=== PATIENT | female | born 1960 | race Caucasian/White ===

== ENCOUNTER 2017-01-26 16:30 | Emergency (ER) | payer BC ==
[2017-01-26] MEDS ORDERED: Take Home: Doxycycline 100 MG Tab, 4 Tab Pack PO ONE (16:48)
--- NOTE | 2017-01-26 16:52 | EDM.PDOC ---
ED HPI GENERAL MEDICAL PROBLEM - General Stated Complaint: MAY HAVE BRONCHITIS Time Seen by Provider: 01/26/17 16:47 Source of Information: Reports: Patient History Limitations: Reports: No Limitations - History of Present Illness INITIAL COMMENTS - FREE TEXT/NARRATIVE: Patient has had a cold for two weeks, now its getting worse and settling in her chest. Also complaining of sinus type frontal headache and frequent cough with clear phlegm. Denies fever but has been feeling chilled. Onset: Gradual Onset Date: 01/12/17 Onset Time: 08:00 Duration: Day(s):, Getting Worse Location: Reports: Head, Chest Quality: Reports: Pressure, Throbbing Severity: Moderate Improves with: Reports: None Worsens with: Reports: None Associated Symptoms: Reports: Cough, cough w sputum, Fever/Chills, Headaches. 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, Other (see below) (mucinex and cough syrup) Headache Pain Score (Numeric/FACES): 3 - Related Data Allergies Allergy/AdvReac Type Severity Reaction Status Date / Time No Known Allergies Allergy Verified 03/08/14 11:15 Home Meds: Home Meds Desonide [Desonide 0.05%] 1 applic TOP ASDIRECTED 03/08/14 [History] Meloxicam [Mobic] 1 tab PO DAILY 03/08/14 [History] Triamcinolone Acetonide [Kenalog 0.1% Crm] 1 applic TOP BID PRN 03/08/14 [ History] Social & Family History - Tobacco Use Smoking Status *Q: Current Every Day Smoker - Alcohol Use Days Per Week of Alcohol Use: 0 - Recreational Drug Use Recreational Drug Use: No ED ROS GENERAL - Review of Systems Review Of Systems: See Below Constitutional: Reports: Chills. Denies: Fever, Weakness, Fatigue, Night Sweats HEENT: Reports: Sinus Problem, Throat Pain. Denies: Ear Pain, Throat Swelling, Vertigo Respiratory: Reports: Cough, Sputum. Denies: Shortness of Breath, Wheezing Cardiovascular: Denies: Chest Pain, Dyspnea on Exertion, Lightheadedness, Orthopnea Endocrine: Denies: Fatigue GI/Abdominal: Reports: No Symptoms : Reports: No Symptoms Musculoskeletal: Reports: No Symptoms Skin: Reports: No Symptoms Neurological: Reports: No Symptoms Psychiatric: Reports: No Symptoms Hematologic/Lymphatic: Reports: No Symptoms Immunologic: Reports: No Symptoms ED EXAM, GENERAL - Physical Exam Exam: See Below Exam Limited By: No Limitations General Appearance: Alert, WD/WN, No Apparent Distress Eye Exam: Bilateral Eye: EOMI, PERRL Ears: Normal External Exam, Normal Canal, Hearing Grossly Normal, Normal TMs Nose: Nasal Swelling, Clear Rhinorrhea, Other (reddenned swollen nasal mucosa) Throat/Mouth: Normal Lips, Normal Teeth, Normal Gums, No Airway Compromise, Other (oropharnyx red with clear, thin PND, voice hoarse, oral mucous membranes moist) Head: Atraumatic, Normocephalic Neck: Normal Inspection, Supple, Non-Tender, Full Range of Motion. No: Thyromegaly Respiratory/Chest: No Respiratory Distress, Lungs Clear, Normal Breath Sounds, Other (harsh breeath sounds over the bronchi, taking a deep breath causes harsh , hacky coughing). No: Respiratory Distress, Crackles, Rales, Rhonchi, Wheezing Cardiovascular: Normal Peripheral Pulses, Regular Rate, Rhythm, No Edema, No Gallop, No JVD, No Murmur, No Rub Peripheral Pulses: 3+: Radial (L), Radial (R) GI/Abdominal: Normal Bowel Sounds, Soft, Non-Tender (Female) Exam: Deferred Rectal (Female) Exam: Deferred Back Exam: Normal Inspection Extremities: Normal Inspection, No Pedal Edema Neurological: Alert, Oriented, CN II-XII Intact, Normal Cognition, Normal Gait Psychiatric: Normal Affect, Normal Mood Skin Exam: Warm, Dry, Intact, Normal Color, No Rash Lymphatic: No Adenopathy Course - Vital Signs Text/Narrative:: Patient examined and evaluated. Diagnosed with acute bronchitis and sinusitis lasting two weeks or longer. Due to being a smoker, she will be started on doxycycline for ten days. Given starter pack with rx to fill on Saturday Also given RX for inhaler to fill if cough not better by Saturday. Patient voiced understanding and agreed with plan. Last Recorded V/S: Last Vital Signs Temp 36.1 C 01/26/17 16:35 Pulse 89 01/26/17 16:35 Resp 20 01/26/17 16:35 BP 114/60 01/26/17 16:35 Pulse Ox 96 01/26/17 16:35 - Orders/Labs/Meds Meds: Medications Discontinued Medications Generic Name Dose Route Start Last Admin Trade Name Pushpa PRN Reason Stop Dose Admin Doxycycline Monohydrate 1 packet 01/26/17 16:48 01/26/17 17:03 Take Home: Doxycycline 100 Mg, 4 Tab Pack PO 01/26/17 16:49 1 packet ONETIME ONE Administration Departure - Departure Time of Disposition: 17:00 Disposition: Home, Self-Care 01 Condition: Good Clinical Impression: Bronchitis Sinusitis Qualifiers: Sinusitis location: frontal Chronicity: acute Recurrence: not specified as recurrent Qualified Code(s): J01.10 - Acute frontal sinusitis, unspecified - Discharge Information Instructions: Acute Bronchitis, [id number] Referrals: Jolie Felipe PA-C [Primary Care Provider] - Additional Instructions: Take antibiotic as directed. Doxycycline 100 mg twice daily for ten days. Fill Prescription for inhaler if cough not better by Saturday. Recheck with your provider if symptoms don't improve within 3-5 days. Eat yogurt once daily to help prevent antibiotic related diarrhea.
[2017-01-26 16:55] VITALS: BP 114/60
== END 2017-01-26 17:04 | disposition home or self-care (01) ==
LOC: VM.ED 16:30
DX: J40 Bronchitis, not specified as acute or chronic (principal); J01.10 Acute frontal sinusitis, unspecified; F17.210 Nicotine dependence, cigarettes, uncomplicated; Z79.899 Other long term (current) drug therapy
CPT/HCPCS: 99283; A9270

== ENCOUNTER 2017-02-06 12:25 | Emergency (ER) | payer BC ==
[2017-02-06] MEDS ORDERED: Sodium Chloride 0.9% 10 ML Syringe FLUSH PRN (12:46)
[2017-02-06] MEDS ORDERED: Sodium Chloride 0.9% 1,000 ML IV SCH (13:00)
--- NOTE | 2017-02-06 13:29 | EDM.PDOC ---
ED HPI GENERAL MEDICAL PROBLEM - General Chief Complaint: Syncope Stated Complaint: LIGHT HEADED Time Seen by Provider: 02/06/17 12:43 Source of Information: Reports: Patient History Limitations: Reports: No Limitations - History of Present Illness INITIAL COMMENTS - FREE TEXT/NARRATIVE: Patient with minimal reported health history presents with light headedness, feeling like she is going to black out and sweating. She just suffered this attack. Was seen at the clinic on Saturday for "not feeling well." Pretty general symptoms with that visit. She has started having migraine headaches starting about 1 month ago. They did start off just at night, but have progressed to happening during the day as well. She was started on Topamax on Saturday at the clinic. She sees Jolie at the [facility] in [place]. She is a 1 ppd smoker, no etoh, no drugs. No htn, no concer, no copd, no thyroid issues. She does have arthritis which is about the only medical problem she does admit to. Onset: Today, Sudden Onset Date: 02/06/17 Onset Time: 12:00 Location: Reports: Chest, Abdomen Quality: Reports: Other (cramping) Severity: Moderate Improves with: Reports: None Worsens with: Reports: None Associated Symptoms: Reports: Headaches, Syncope - Related Data Allergies Allergy/AdvReac Type Severity Reaction Status Date / Time No Known Allergies Allergy Verified 02/06/17 12:44 Home Meds: Home Meds Desonide [Desonide 0.05%] 1 applic TOP ASDIRECTED 03/08/14 [History] Meloxicam [Mobic] 1 tab PO DAILY 03/08/14 [History] Triamcinolone Acetonide [Kenalog 0.1% Crm] 1 applic TOP BID PRN 03/08/14 [ History] Doxycycline [Vibramycin] 100 mg PO BID 02/06/17 [History] Topiramate [Topiramate ER] 25 mg DAILY 02/06/17 [History] Past Medical History - Past Health History Medical/Surgical History: Denies Medical/Surgical History Musculoskeletal History: Reports: Arthritis Neurological History: Reports: Migraines Dermatologic History: Reports: Eczema - Past Surgical History Female Surgical History: Reports: Tubal Ligation Social & Family History - Tobacco Use Smoking Status *Q: Current Every Day Smoker Years of Tobacco use: 40 Packs/Tins Daily: 1 - Alcohol Use Days Per Week of Alcohol Use: 0 - Recreational Drug Use Recreational Drug Use: No ED ROS GENERAL - Review of Systems Review Of Systems: See Below Constitutional: Reports: No Symptoms HEENT: Reports: No Symptoms Respiratory: Reports: No Symptoms Cardiovascular: Reports: No Symptoms, Chest Pain Endocrine: Reports: No Symptoms GI/Abdominal: Reports: Abdominal Pain, Nausea : Reports: No Symptoms Musculoskeletal: Reports: No Symptoms Skin: Reports: No Symptoms Neurological: Reports: Dizziness, Headache, Syncope Psychiatric: Reports: No Symptoms Hematologic/Lymphatic: Reports: No Symptoms Immunologic: Reports: No Symptoms - Physical Exam Exam: See Below Exam Limited By: No Limitations General Appearance: Alert, WD/WN, Mild Distress Eye Exam: Bilateral Eye: EOMI, PERRL Throat/Mouth: Normal Inspection Head Exam: Atraumatic, Normocephalic Neck: Normal Inspection, Supple, Non-Tender, Full Range of Motion Respiratory/Chest: No Respiratory Distress, Lungs Clear, Normal Breath Sounds, No Accessory Muscle Use, Chest Non-Tender Cardiovascular: Normal Peripheral Pulses, Regular Rate, Rhythm, No Edema, No Gallop GI/Abdominal: Normal Bowel Sounds, Soft, No Distention, No Abnormal Bruit, Tender Neuro Exam (Abbreviated): Alert, Oriented, CN II-XII Intact, Normal Cognition, Normal Gait, Normal Reflexes, No Motor/Sensory Deficits Back Exam: Normal Inspection, Full Range of Motion Extremities: Normal Inspection, Normal Range of Motion, Non-Tender, No Pedal Edema, Normal Capillary Refill Psychiatric: Normal Affect, Anxious Skin Exam: Warm, Dry, Intact Course - Vital Signs Last Recorded V/S: Last Vital Signs Temp 35.5 C 02/06/17 12:25 Pulse 79 02/06/17 12:25 Resp 16 02/06/17 12:25 BP 174/70 H 02/06/17 12:25 Pulse Ox - Orders/Labs/Meds Orders: Active Orders 24 hr Category Date Time Status EKG Documentation Completion [RC] ROUTINE Care 02/06/17 12:43 Ordered Abdomen Pelvis w Cont [CT] Stat Exams 02/06/17 13:21 Ordered Ang Chest [CT] Stat Exams 02/06/17 13:21 Ordered Chest 2V [CR] Stat Exams 02/06/17 12:43 Stop Req B-TYPE NATRIURETIC PEPTIDE,BNP [CHEM] Stat Lab 02/06/17 12:43 Ordered CK W CKMB [CHEM] Stat Lab 02/06/17 12:43 Ordered COMPREHENSIVE METABOLIC PN,CMP [CHEM] Stat Lab 02/06/17 12:43 Ordered CRP [C-REACTIVE PROTEIN] [CHEM] Stat Lab 02/06/17 12:46 Ordered D Dimer [D-DIMER QUANTITATIVE] [COAG] Stat Lab 02/06/17 13:20 Ordered TROPONIN I [CHEM] Stat Lab 02/06/17 12:43 Ordered Sodium Chloride 0.9% [Normal Saline] 1,000 ml Med 02/06/17 13:00 Ordered IV ASDIRECTED Sodium Chloride 0.9% [Saline Flush] Med 02/06/17 12:46 Ordered 10 ml FLUSH ASDIRECTED PRN Saline Lock Insert [OM.PC] Routine Oth 02/06/17 12:46 Ordered Medication Orders Sodium Chloride (Normal Saline) 1,000 mls @ 999 mls/hr IV ASDIRECTED KEN Last Admin: 02/06/17 13:15 Dose: 999 mls/hr Sodium Chloride (Saline Flush) 10 ml FLUSH ASDIRECTED PRN PRN Reason: Keep Vein Open Labs: Laboratory Tests 02/06/17 02/06/17 Range/Units 12:52 12:52 WBC 5.7 (4.0-10.0) x10^3/uL RBC 4.53 (4.00-5.50) x10^6/uL Hgb 14.4 (12.0-16.0) g/dL Hct 42.5 (33.0-47.0) % MCV 93.8 H (78.0-93.0) fL MCH 31.8 (26.0-32.0) pg MCHC 33.9 (32.0-36.0) g/dL RDW Coeff of Meera 12.5 (10.0-15.0) % Plt Count 252 (130-400) x10^3/uL Neut % (Auto) 52.2 (50.0-80.0) % Lymph % (Auto) 39.5 (25.0-50.0) % Grainger % (Auto) 7.1 (2.0-11.0) % Eos % (Auto) 1.2 (0.0-4.0) % Baso % (Auto) 0.0 L (0.2-1.2) % PT 10.4 (10.0-12.8) SEC INR 0.9 L (2.0-3.5) Meds: Medications Generic Name Dose Route Start Last Admin Trade Name Pushpa PRN Reason Stop Dose Admin Sodium Chloride 1,000 mls @ 999 mls/hr 02/06/17 13:00 02/06/17 13:15 Normal Saline IV 999 mls/hr ASDIRECTED KEN Administration Sodium Chloride 10 ml 02/06/17 12:46 Saline Flush FLUSH ASDIRECTED PRN Keep Vein Open - Re-Assessments/Exams Free Text/Narrative Re-Assessment/Exam: 02/06/17 15:11 Patient's daughter did reveal that her West Nile Test performed on Saturday did just come back positive. Review of x-ray reveals 27 mm right upper lobe nodule, grossly normal abdominal CT. No AAA. D-dimer, troponin negative Departure - Departure Time of Disposition: 14:45 Disposition: Home, Self-Care 01 Condition: Good Clinical Impression: [place] fever with other complications - Discharge Information Instructions: West Nile Virus Forms: ED Department Discharge Additional Instructions: ED HPI GENERAL MEDICAL PROBLEM - General Chief Complaint: Syncope Stated Complaint: LIGHT HEADED Time Seen by Provider: 02/06/17 12:43 Source of Information: Reports: Patient History Limitations: Reports: No Limitations - History of Present Illness Onset: Today, Sudden Onset Date: 02/06/17 Onset Time: 12:00 Location: Reports: Chest, Abdomen Quality: Reports: Other (cramping) - Related Data Allergies Allergy/AdvReac Type Severity Reaction Status Date / Time No Known Allergies Allergy Verified 02/06/17 12:44 Home Meds: Home Meds Desonide [Desonide 0.05%] 1 applic TOP ASDIRECTED 03/08/14 [History] Meloxicam [Mobic] 1 tab PO DAILY 03/08/14 [History] Triamcinolone Acetonide [Kenalog 0.1% Crm] 1 applic TOP BID PRN 03/08/14 [ History] Doxycycline [Vibramycin] 100 mg PO BID 02/06/17 [History] Topiramate [Topiramate ER] 25 mg DAILY 02/06/17 [History] Past Medical History - Past Health History Medical/Surgical History: Denies Medical/Surgical History Musculoskeletal History: Reports: Arthritis Neurological History: Reports: Migraines Dermatologic History: Reports: Eczema - Past Surgical History Female Surgical History: Reports: Tubal Ligation Social & Family History - Tobacco Use Smoking Status *Q: Current Every Day Smoker Years of Tobacco use: 40 Packs/Tins Daily: 1 - Alcohol Use Days Per Week of Alcohol Use: 0 - Recreational Drug Use Recreational Drug Use: No Course - Vital Signs Last Recorded V/S: Last Vital Signs Temp 35.5 C 02/06/17 12:25 Pulse 79 02/06/17 12:25 Resp 16 02/06/17 12:25 BP 174/70 H 02/06/17 12:25 Pulse Ox - Orders/Labs/Meds Orders: Active Orders 24 hr Category Date Time Status EKG Documentation Completion [RC] ROUTINE Care 02/06/17 12:43 Ordered Abdomen Pelvis w Cont [CT] Stat Exams 02/06/17 13:21 Ordered Ang Chest [CT] Stat Exams 02/06/17 13:21 Ordered Chest 2V [CR] Stat Exams 02/06/17 12:43 Stop Req B-TYPE NATRIURETIC PEPTIDE,BNP [CHEM] Stat Lab 02/06/17 12:43 Ordered CK W CKMB [CHEM] Stat Lab 02/06/17 12:43 Ordered COMPREHENSIVE METABOLIC PN,CMP [CHEM] Stat Lab 02/06/17 12:43 Ordered CRP [C-REACTIVE PROTEIN] [CHEM] Stat Lab 02/06/17 12:46 Ordered D Dimer [D-DIMER QUANTITATIVE] [COAG] Stat Lab 02/06/17 13:20 Ordered TROPONIN I [CHEM] Stat Lab 02/06/17 12:43 Ordered Sodium Chloride 0.9% [Normal Saline] 1,000 ml Med 02/06/17 13:00 Ordered IV ASDIRECTED Sodium Chloride 0.9% [Saline Flush] Med 02/06/17 12:46 Ordered 10 ml FLUSH ASDIRECTED PRN Saline Lock Insert [OM.PC] Routine Oth 02/06/17 12:46 Ordered Medication Orders Sodium Chloride (Normal Saline) 1,000 mls @ 999 mls/hr IV ASDIRECTED KEN Last Admin: 02/06/17 13:15 Dose: 999 mls/hr Sodium Chloride (Saline Flush) 10 ml FLUSH ASDIRECTED PRN PRN Reason: Keep Vein Open Labs: Laboratory Tests 02/06/17 02/06/17 Range/Units 12:52 12:52 WBC 5.7 (4.0-10.0) x10^3/uL RBC 4.53 (4.00-5.50) x10^6/uL Hgb 14.4 (12.0-16.0) g/dL Hct 42.5 (33.0-47.0) % MCV 93.8 H (78.0-93.0) fL MCH 31.8 (26.0-32.0) pg MCHC 33.9 (32.0-36.0) g/dL RDW Coeff of Meera 12.5 (10.0-15.0) % Plt Count 252 (130-400) x10^3/uL Neut % (Auto) 52.2 (50.0-80.0) % Lymph % (Auto) 39.5 (25.0-50.0) % Grainger % (Auto) 7.1 (2.0-11.0) % Eos % (Auto) 1.2 (0.0-4.0) % Baso % (Auto) 0.0 L (0.2-1.2) % PT 10.4 (10.0-12.8) SEC INR 0.9 L (2.0-3.5) Meds: Medications Generic Name Dose Route Start Last Admin Trade Name Freq PRN Reason Stop Dose Admin Sodium Chloride 1,000 mls @ 999 mls/hr 02/06/17 13:00 02/06/17 13:15 Normal Saline IV 999 mls/hr ASDIRECTED KEN Administration Sodium Chloride 10 ml 02/06/17 12:46 Saline Flush FLUSH ASDIRECTED PRN Keep Vein Open Departure - Departure Disposition: Home, Self-Care 01 Condition: Good Clinical Impression: [place] fever with other complications - Discharge Information Instructions: West [place] Virus Forms: ED Department Discharge Additional Instructions: ED HPI GENERAL MEDICAL PROBLEM - General Chief Complaint: Syncope Stated Complaint: LIGHT HEADED Time Seen by Provider: 02/06/17 12:43 Source of Information: Reports: Patient History Limitations: Reports: No Limitations - History of Present Illness Onset: Today, Sudden Onset Date: 02/06/17 Onset Time: 12:00 Location: Reports: Chest, Abdomen Quality: Reports: Other (cramping) - Related Data Allergies Allergy/AdvReac Type Severity Reaction Status Date / Time No Known Allergies Allergy Verified 02/06/17 12:44 Home Meds: Home Meds Desonide [Desonide 0.05%] 1 applic TOP ASDIRECTED 03/08/14 [History] Meloxicam [Mobic] 1 tab PO DAILY 03/08/14 [History] Triamcinolone Acetonide [Kenalog 0.1% Crm] 1 applic TOP BID PRN 03/08/14 [ History] Doxycycline [Vibramycin] 100 mg PO BID 02/06/17 [History] Topiramate [Topiramate ER] 25 mg DAILY 02/06/17 [History] Past Medical History - Past Health History Medical/Surgical History: Denies Medical/Surgical History Musculoskeletal History: Reports: Arthritis Neurological History: Reports: Migraines Dermatologic History: Reports: Eczema - Past Surgical History Female Surgical History: Reports: Tubal Ligation Social & Family History - Tobacco Use Smoking Status *Q: Current Every Day Smoker Years of Tobacco use: 40 Packs/Tins Daily: 1 - Alcohol Use Days Per Week of Alcohol Use: 0 - Recreational Drug Use Recreational Drug Use: No Course - Vital Signs Last Recorded V/S: Last Vital Signs Temp 35.5 C 02/06/17 12:25 Pulse 79 02/06/17 12:25 Resp 16 02/06/17 12:25 BP 174/70 H 02/06/17 12:25 Pulse Ox - Orders/Labs/Meds Orders: Active Orders 24 hr Category Date Time Status EKG Documentation Completion [RC] ROUTINE Care 02/06/17 12:43 Ordered Abdomen Pelvis w Cont [CT] Stat Exams 02/06/17 13:21 Ordered Ang Chest [CT] Stat Exams 02/06/17 13:21 Ordered Chest 2V [CR] Stat Exams 02/06/17 12:43 Stop Req B-TYPE NATRIURETIC PEPTIDE,BNP [CHEM] Stat Lab 02/06/17 12:43 Ordered CK W CKMB [CHEM] Stat Lab 02/06/17 12:43 Ordered COMPREHENSIVE METABOLIC PN,CMP [CHEM] Stat Lab 02/06/17 12:43 Ordered CRP [C-REACTIVE PROTEIN] [CHEM] Stat Lab 02/06/17 12:46 Ordered D Dimer [D-DIMER QUANTITATIVE] [COAG] Stat Lab 02/06/17 13:20 Ordered TROPONIN I [CHEM] Stat Lab 02/06/17 12:43 Ordered Sodium Chloride 0.9% [Normal Saline] 1,000 ml Med 02/06/17 13:00 Ordered IV ASDIRECTED Sodium Chloride 0.9% [Saline Flush] Med 02/06/17 12:46 Ordered 10 ml FLUSH ASDIRECTED PRN Saline Lock Insert [OM.PC] Routine Oth 02/06/17 12:46 Ordered Medication Orders Sodium Chloride (Normal Saline) 1,000 mls @ 999 mls/hr IV ASDIRECTED KEN Last Admin: 02/06/17 13:15 Dose: 999 mls/hr Sodium Chloride (Saline Flush) 10 ml FLUSH ASDIRECTED PRN PRN Reason: Keep Vein Open Labs: Laboratory Tests 02/06/17 02/06/17 Range/Units 12:52 12:52 WBC 5.7 (4.0-10.0) x10^3/uL RBC 4.53 (4.00-5.50) x10^6/uL Hgb 14.4 (12.0-16.0) g/dL Hct 42.5 (33.0-47.0) % MCV 93.8 H (78.0-93.0) fL MCH 31.8 (26.0-32.0) pg MCHC 33.9 (32.0-36.0) g/dL RDW Coeff of Meera 12.5 (10.0-15.0) % Plt Count 252 (130-400) x10^3/uL Neut % (Auto) 52.2 (50.0-80.0) % Lymph % (Auto) 39.5 (25.0-50.0) % Grainger % (Auto) 7.1 (2.0-11.0) % Eos % (Auto) 1.2 (0.0-4.0) % Baso % (Auto) 0.0 L (0.2-1.2) % PT 10.4 (10.0-12.8) SEC INR 0.9 L (2.0-3.5) Meds: Medications Generic Name Dose Route Start Last Admin Trade Name Freq PRN Reason Stop Dose Admin Sodium Chloride 1,000 mls @ 999 mls/hr 02/06/17 13:00 02/06/17 13:15 Normal Saline IV 999 mls/hr ASDIRECTED KEN Administration Sodium Chloride 10 ml 02/06/17 12:46 Saline Flush FLUSH ASDIRECTED PRN Keep Vein Open Departure - Departure Disposition: Home, Self-Care 01 Condition: Good Clinical Impression: [place] fever with other complications - Discharge Information Instructions: West Nile Virus Forms: ED Department Discharge - My Orders Last 24 Hours: I have reviewed your case with Dr. Garcia at [facility] and we feel it is alright for you to go home today. You need to schedule a follow up appointment with Jolie next week. You should come back in with any signs of worsening neurologic symptoms. These can include worsening or more frequent headaches, neck ache, numbness or weakness to one side of the body or any speech difficulty. Please review the packet I included regarding West Nile. There can be some residual symptoms. Please call us with any questions or concerns. - Problem List & Annotations (1) West [place] fever with other complications SNOMED Code(s): 532230551 Code(s): A92.39 - [place] N[place] VIRUS INFECTION WITH OTHER COMPLICATIONS Status : Acute Priority: Medium Current Visit: Yes - Problem List Review Problem List Initiated/Reviewed/Updated: Yes - My Orders Last 24 Hours: My Active Orders 02/06/17 12:43 EKG Documentation Completion [RC] ROUTINE Chest 2V [CR] Stat B-TYPE NATRIURETIC PEPTIDE,BNP [CHEM] Stat CK W CKMB [CHEM] Stat COMPREHENSIVE METABOLIC PN,CMP [CHEM] Stat TROPONIN I [CHEM] Stat 02/06/17 12:46 CRP [C-REACTIVE PROTEIN] [CHEM] Stat Sodium Chloride 0.9% [Saline Flush] 10 ml FLUSH ASDIRECTED PRN Saline Lock Insert [OM.PC] Routine 02/06/17 13:00 Sodium Chloride 0.9% [Normal Saline] 1,000 ml IV ASDIRECTED 02/06/17 13:20 D Dimer [D-DIMER QUANTITATIVE] [COAG] Stat 02/06/17 13:21 Abdomen Pelvis w Cont [CT] Stat Ang Chest [CT] Stat - Assessment/Plan Last 24 Hours: My Active Orders 02/06/17 12:43 EKG Documentation Completion [RC] ROUTINE Chest 2V [CR] Stat B-TYPE NATRIURETIC PEPTIDE,BNP [CHEM] Stat CK W CKMB [CHEM] Stat COMPREHENSIVE METABOLIC PN,CMP [CHEM] Stat TROPONIN I [CHEM] Stat 02/06/17 12:46 CRP [C-REACTIVE PROTEIN] [CHEM] Stat Sodium Chloride 0.9% [Saline Flush] 10 ml FLUSH ASDIRECTED PRN Saline Lock Insert [OM.PC] Routine 02/06/17 13:00 Sodium Chloride 0.9% [Normal Saline] 1,000 ml IV ASDIRECTED 02/06/17 13:20 D Dimer [D-DIMER QUANTITATIVE] [COAG] Stat 02/06/17 13:21 Abdomen Pelvis w Cont [CT] Stat Ang Chest [CT] Stat Assessment:: West Nile Virus Plan: I have reviewed your case with Dr. Garcia at [facility] and we feel it is alright for you to go home today. You need to schedule a follow up appointment with Jolie next week. You should come back in with any signs of worsening neurologic symptoms. These can include worsening or more frequent headaches, neck ache, numbness or weakness to one side of the body or any speech difficulty. Please review the packet I included regarding [place]. There can be some residual symptoms. Please call us with any questions or concerns. ED HPI GENERAL MEDICAL PROBLEM - General Chief Complaint: Syncope Stated Complaint: LIGHT HEADED Time Seen by Provider: 02/06/17 12:43 Source of Information: Reports: Patient History Limitations: Reports: No Limitations - History of Present Illness Onset: Today, Sudden Onset Date: 02/06/17 Onset Time: 12:00 Location: Reports: Chest, Abdomen Quality: Reports: Other (cramping) - Related Data Allergies Allergy/AdvReac Type Severity Reaction Status Date / Time No Known Allergies Allergy Verified 02/06/17 12:44 Home Meds: Home Meds Desonide [Desonide 0.05%] 1 applic TOP ASDIRECTED 03/08/14 [History] Meloxicam [Mobic] 1 tab PO DAILY 03/08/14 [History] Triamcinolone Acetonide [Kenalog 0.1% Crm] 1 applic TOP BID PRN 03/08/14 [ History] Doxycycline [Vibramycin] 100 mg PO BID 02/06/17 [History] Topiramate [Topiramate ER] 25 mg DAILY 02/06/17 [History] Past Medical History - Past Health History Medical/Surgical History: Denies Medical/Surgical History Musculoskeletal History: Reports: Arthritis Neurological History: Reports: Migraines Dermatologic History: Reports: Eczema - Past Surgical History Female Surgical History: Reports: Tubal Ligation Social & Family History - Tobacco Use Smoking Status *Q: Current Every Day Smoker Years of Tobacco use: 40 Packs/Tins Daily: 1 - Alcohol Use Days Per Week of Alcohol Use: 0 - Recreational Drug Use Recreational Drug Use: No Course - Vital Signs Last Recorded V/S: Last Vital Signs Temp 35.5 C 02/06/17 12:25 Pulse 79 02/06/17 12:25 Resp 16 02/06/17 12:25 BP 174/70 H 02/06/17 12:25 Pulse Ox - Orders/Labs/Meds Orders: Active Orders 24 hr Category Date Time Status EKG Documentation Completion [RC] ROUTINE Care 02/06/17 12:43 Ordered Abdomen Pelvis w Cont [CT] Stat Exams 02/06/17 13:21 Ordered Ang Chest [CT] Stat Exams 02/06/17 13:21 Ordered Chest 2V [CR] Stat Exams 02/06/17 12:43 Stop Req B-TYPE NATRIURETIC PEPTIDE,BNP [CHEM] Stat Lab 02/06/17 12:43 Ordered CK W CKMB [CHEM] Stat Lab 02/06/17 12:43 Ordered COMPREHENSIVE METABOLIC PN,CMP [CHEM] Stat Lab 02/06/17 12:43 Ordered CRP [C-REACTIVE PROTEIN] [CHEM] Stat Lab 02/06/17 12:46 Ordered D Dimer [D-DIMER QUANTITATIVE] [COAG] Stat Lab 02/06/17 13:20 Ordered TROPONIN I [CHEM] Stat Lab 02/06/17 12:43 Ordered Sodium Chloride 0.9% [Normal Saline] 1,000 ml Med 02/06/17 13:00 Ordered IV ASDIRECTED Sodium Chloride 0.9% [Saline Flush] Med 02/06/17 12:46 Ordered 10 ml FLUSH ASDIRECTED PRN Saline Lock Insert [OM.PC] Routine Oth 02/06/17 12:46 Ordered Medication Orders Sodium Chloride (Normal Saline) 1,000 mls @ 999 mls/hr IV ASDIRECTED KEN Last Admin: 02/06/17 13:15 Dose: 999 mls/hr Sodium Chloride (Saline Flush) 10 ml FLUSH ASDIRECTED PRN PRN Reason: Keep Vein Open Labs: Laboratory Tests 02/06/17 02/06/17 Range/Units 12:52 12:52 WBC 5.7 (4.0-10.0) x10^3/uL RBC 4.53 (4.00-5.50) x10^6/uL Hgb 14.4 (12.0-16.0) g/dL Hct 42.5 (33.0-47.0) % MCV 93.8 H (78.0-93.0) fL MCH 31.8 (26.0-32.0) pg MCHC 33.9 (32.0-36.0) g/dL RDW Coeff of Meera 12.5 (10.0-15.0) % Plt Count 252 (130-400) x10^3/uL Neut % (Auto) 52.2 (50.0-80.0) % Lymph % (Auto) 39.5 (25.0-50.0) % Grainger % (Auto) 7.1 (2.0-11.0) % Eos % (Auto) 1.2 (0.0-4.0) % Baso % (Auto) 0.0 L (0.2-1.2) % PT 10.4 (10.0-12.8) SEC INR 0.9 L (2.0-3.5) Meds: Medications Generic Name Dose Route Start Last Admin Trade Name Freq PRN Reason Stop Dose Admin Sodium Chloride 1,000 mls @ 999 mls/hr 02/06/17 13:00 02/06/17 13:15 Normal Saline IV 999 mls/hr ASDIRECTED KEN Administration Sodium Chloride 10 ml 02/06/17 12:46 Saline Flush FLUSH ASDIRECTED PRN Keep Vein Open Departure - Departure Disposition: Home, Self-Care 01 Condition: Good Clinical Impression: [place] fever with other complications - Discharge Information Instructions: West Nile Virus Forms: ED Department Discharge - My Orders Last 24 Hours: I have reviewed your case with Dr. Garcia at [facility] and we feel it is alright for you to go home today. You need to schedule a follow up appointment with Jolie next week. You should come back in with any signs of worsening neurologic symptoms. These can include worsening or more frequent headaches, neck ache, numbness or weakness to one side of the body or any speech difficulty. Please review the packet I included regarding [place]. There can be some residual symptoms. Please call us with any questions or concerns. - Problem List & Annotations (1) [place] fever with other complications SNOMED Code(s): 544718705 Code(s): A92.39 - [place]ST N[place] VIRUS INFECTION WITH OTHER COMPLICATIONS Status : Acute Priority: Medium Current Visit: Yes - Problem List Review Problem List Initiated/Reviewed/Updated: Yes - My Orders Last 24 Hours: My Active Orders 02/06/17 12:43 EKG Documentation Completion [RC] ROUTINE Chest 2V [CR] Stat B-TYPE NATRIURETIC PEPTIDE,BNP [CHEM] Stat CK W CKMB [CHEM] Stat COMPREHENSIVE METABOLIC PN,CMP [CHEM] Stat TROPONIN I [CHEM] Stat 02/06/17 12:46 CRP [C-REACTIVE PROTEIN] [CHEM] Stat Sodium Chloride 0.9% [Saline Flush] 10 ml FLUSH ASDIRECTED PRN Saline Lock Insert [OM.PC] Routine 02/06/17 13:00 Sodium Chloride 0.9% [Normal Saline] 1,000 ml IV ASDIRECTED 02/06/17 13:20 D Dimer [D-DIMER QUANTITATIVE] [COAG] Stat 02/06/17 13:21 Abdomen Pelvis w Cont [CT] Stat Ang Chest [CT] Stat - Assessment/Plan Last 24 Hours: My Active Orders 02/06/17 12:43 EKG Documentation Completion [RC] ROUTINE Chest 2V [CR] Stat B-TYPE NATRIURETIC PEPTIDE,BNP [CHEM] Stat CK W CKMB [CHEM] Stat COMPREHENSIVE METABOLIC PN,CMP [CHEM] Stat TROPONIN I [CHEM] Stat 02/06/17 12:46 CRP [C-REACTIVE PROTEIN] [CHEM] Stat Sodium Chloride 0.9% [Saline Flush] 10 ml FLUSH ASDIRECTED PRN Saline Lock Insert [OM.PC] Routine 02/06/17 13:00 Sodium Chloride 0.9% [Normal Saline] 1,000 ml IV ASDIRECTED 02/06/17 13:20 D Dimer [D-DIMER QUANTITATIVE] [COAG] Stat 02/06/17 13:21 Abdomen Pelvis w Cont [CT] Stat Ang Chest [CT] Stat Assessment:: West Nile Virus Plan: I have reviewed your case with Dr. Garcia at [facility] and we feel it is alright for you to go home today. You need to schedule a follow up appointment with Jolie next week. You should come back in with any signs of worsening neurologic symptoms. These can include worsening or more frequent headaches, neck ache, numbness or weakness to one side of the body or any speech difficulty. Please review the packet I included regarding [place] Nile. There can be some residual symptoms. Please call us with any questions or concerns.
[2017-02-06 13:31] LABS: CHLORIDE,CL 105 mmol/L (98-107); SODIUM,NA 143 mmol/L (136-145)
[2017-02-06 13:38] VITALS: BP 167/96
[2017-02-06] MEDS ORDERED: Iopamidol 612 MG/ML 100 ML Bottle IVPUSH ONE (13:39)
[2017-02-06] MEDS ORDERED: Sodium Chloride 0.9% 100 ML IV SCH (13:45)
== END 2017-02-06 14:50 | disposition home or self-care (01) ==
LOC: VM.ED 12:25
DX: A92.39 West Nile virus infection with other complications (principal); R55 Syncope and collapse; G43.909 Migraine, unspecified, not intractable, without status migrainosus; M19.90 Unspecified osteoarthritis, unspecified site; F17.210 Nicotine dependence, cigarettes, uncomplicated; Z79.899 Other long term (current) drug therapy
CPT/HCPCS: 36415; 71020; 74177; 80053; 82550; 82553; 83880; 84443; 84484; 85025; 85379; 85610; 86140; 93005; 96360; 99285; J7030; J7050; Q9967

== ENCOUNTER 2017-02-10 10:11 | Emergency (ER) | payer BC ==
[2017-02-10] MEDS ORDERED: Sodium Chloride 0.9% 10 ML Syringe FLUSH PRN (11:06)
[2017-02-10] MEDS ORDERED: Sodium Chloride 0.9% 1,000 ML IV ONE (11:08)
[2017-02-10 11:12] VITALS: BP 148/72
[2017-02-10 11:52] LABS: CHLORIDE,CL 106 mmol/L (98-107); SODIUM,NA 138 mmol/L (136-145)
[2017-02-10] MEDS ORDERED: Iopamidol 612 MG/ML 100 ML Bottle IVPUSH ONE (12:31)
[2017-02-10] MEDS ORDERED: Sodium Chloride 0.9% 100 ML IV SCH (12:45)
--- NOTE | 2017-02-20 13:55 | ER ---
Date of Service: 02/10/2017 SUBJECTIVE: Kiera presents to the emergency room with complaints of fatigue and dizziness. She had been experiencing fatigue and headaches for a month and was seen in the emergency room on 02/06/2017 and was diagnosed with West Nile virus. The patient states that on the morning of the ER visit, she was experiencing continued dizziness and became concerned and subsequently came to the ER. The patient states that she was not experiencing any chest pain or shortness of breath but was experiencing some vertigo and lightheadedness. The patient does have a history of smoking and was noted to have a lung nodule on her chest x-ray on her visit on the , approximately 4 days prior to this visit. The patient states that she has not been experiencing any hemoptysis but has noticed some unintended weight loss. PAST MEDICAL HISTORY: 1. Migraine headaches. 2. Tobacco abuse disorder. 3. Osteoarthritis. MEDICATIONS: 1. Tramadol 50 mg q.6 hours. 2. Triamcinolone cream. 3. Topamax ER. 4. Mobic. 5. Vibramycin. ALLERGIES: NKDA. REVIEW OF SYSTEMS: General: No fever or chills. HEENT: No sore throat, rhinorrhea, or congestion. She does have a headache. Lungs: Does complain of mild cough. Cardiac: Denies any substernal chest pain. No jaw, arm, neck, or back pain. Gastrointestinal: No nausea, vomiting, or diarrhea. No melena, hematochezia, or hematemesis. Genitourinary: Denies any dysuria. Musculoskeletal: Positive for myalgias and arthralgias. Neurologic: Please see history of present illness. Denies any head trauma. PHYSICAL EXAMINATION: General: This is a 56-year-old female patient, who is in no acute distress. Vital Signs: Blood pressure is 148/72, temperature is 35.2, heart rate is 64, respiratory rate 16, and O2 saturations 100%. Skin: Warm, pink, and dry. Mouth, oral mucosa is somewhat dry. No erythema or exudate noted at the hypopharynx. Neck: Supple. No masses. There is no lymphadenopathy. Lungs: Diminished. Heart: Regular rate and rhythm. Abdomen: Soft, nontender. There is no hepatosplenomegaly or masses noted. Extremities: Without edema. LABORATORY DATA: WBCs 5.6, hemoglobin is 14.1, and platelets 233. Coags; PT is 11.3, INR is 1.0. Chemistry; sodium is 138, potassium is 3.9, chloride is 106, bicarb is 26, BUN is 13, creatinine is 0.9. GFR is greater than 60. Glucose is 94, lactic acid is 1.1, calcium is 8.1, corrected calcium is 8.5. Total bilirubin is 0.5, AST is 16, ALT is 19, alkaline phosphatase is 90, CK is 77, CK- MB is 0.8. Troponin is less than 0.017. C-reactive protein is less than 0.2, total protein is 6.2, albumin is 3.5, TSH is 2.66. Urinalysis reveals specific gravity less than 1.005. This is after a liter of fluids. Urine pH was 6.5, negative for protein, glucose ketones, occult blood, nitrites, and bilirubin as well as leukocyte esterase. Two-view chest x-ray was obtained which again did show evidence of this nodule on the patient's right upper lobe which was highly suspicious for malignancy. Subsequently, CT scan of the patient's lung was performed and the patient was found to have an evidence of probable metastatic disease concerning this lung nodule. The exam was performed with contrast. EMERGENCY ROOM COURSE: IV access was established. The patient was given a liter of normal saline and did report feeling less lightheaded at the time of discharge. ASSESSMENT: 1. Mild dehydration. 2. Lung nodule with appearance consistent with metastatic disease. PLAN: I did speak with [facility] regarding this patient's findings. They advised that she follow up with her primary care provider and get scheduled for a biopsy with Interventional Radiology. I did discuss these findings with the patient. We will have her follow up with Jolie Felipe regarding this. All questions were answered. MWK: 02/20/2017 08:04:21 MODL: 02/20/2017 11:58:27 /[id number]
== END 2017-02-10 14:20 | disposition home or self-care (01) ==
LOC: VM.ED 10:11
DX: E86.0 Dehydration (principal); R91.1 Solitary pulmonary nodule; M19.90 Unspecified osteoarthritis, unspecified site; G43.909 Migraine, unspecified, not intractable, without status migrainosus; Z87.891 Personal history of nicotine dependence
CPT/HCPCS: 36415; 71020; 71260; 80053; 81001; 82550; 82553; 83605; 84443; 84484; 85025; 85610; 86140; 96360; 99284; J7030; J7050; Q9967